=== PATIENT | female | born 1970 | race Hispanic/Latino ===

== ENCOUNTER 2021-06-05 18:32 | Outpatient (CLI) | payer OTHER | END 2021-06-05 18:33 | disposition home or self-care (01) | LOC: BURRAD 18:32 | PROVIDERS: ATTEND Physician Assistant | DX: M15.9 Polyosteoarthritis, unspecified (principal); M51.37 Other intervertebral disc degeneration, lumbosacral region | CPT/HCPCS: 72110; 73521 ==